=== PATIENT | male | born 1970 | race Two or more races ===

== ENCOUNTER 2018-04-20 10:26 | Inpatient (IN) | payer SELFPAY ==
[~2018-04-20] VITALS: Ht 185.4 cm; Wt 77.1 kg
--- NOTE | 2018-04-20 10:28 | NUR ---
PT BIBA RA [id number] "was found by neighbor sitting in car w/hose connected to exhaust also tried to take isopropryl alcohol yesterday. Hx Depression" PT IS AAOX4, NOT IN RESPIRATORY DISTRESS, V/S STABLE, KEPT RESTED AND COMFORTABLE.
--- NOTE | 2018-04-20 10:28 | NUR ---
SEEN AND EXAMINED BY DR. STERLING.
--- NOTE | 2018-04-20 10:30 | NUR ---
URINE SPECIMEN COLLECTED, LABS DRAWNED AND SENT TO LAB.
--- NOTE | 2018-04-20 10:32 | NUR ---
[employer] AT BEDSIDE.
[2018-04-20 10:43] LABS: APPEARANCE,URINE Clear (CLEAR); BILIRUBIN,URINE MODERATE (NEGATIVE); BLOOD, URINE Negative Ery/uL (NEGATIVE); COLOR,URINE Dark (YELLOW); KETONES,URINE >=160 (NEGATIVE); LEUKOCYTE ESTERASE ,URINE Negative (NEGATIVE); NITRITE, URINE Negative (NEGATIVE); PROTEIN,URINE 30 mg/dl (NEGATIVE); UGLUCOSE Negative (NEGATIVE)
[2018-04-20 10:46] LABS: BASOPHILS # (AUTO) 0.1 /CMM (0.0-0.2); BASOPHILS % (AUTO) 0.6 % (0.0-2.0); EOSINOPHILS % (AUTO) 0.1 % (0.0-6.0); HEMATOCRIT 48 % (39-51); HEMOGLOBIN 16.1 g/dL (13.5-17.5); LYMPHOCYTES % (AUTO) 9.2 % (20.0-44.0); MEAN CORPUSCULAR HGB CONC 34 g/dl (31.0-36.0); MEAN CORPUSCULAR VOLUME 96 fL (80-96); MONOCYTES # (AUTO) 0.6 /CMM (0.1-1.30); MONOCYTES % (AUTO) 5.6 % (2.0-12.0); NEUTROPHILS # (AUTO) 8.8 /CMM (1.8-8.9); NEUTROPHILS % (AUTO) 84.5 % (43.0-81.0); PLATELET COUNT (AUTO) 333 /CMM (150-450); RED BLOOD CELL COUNT(AUTO) 4.97 MIL/uL (4.5-6.0); WHITE BLOOD COUNT (AUTO) 10.5 K/uL (4.3-11.0)
[2018-04-20 10:54] LABS: CARBON DIOXIDE 25 mmol/L (21-32); CHLORIDE 106 mmol/L (98-107); CREATININE 2.3 mg/dL (0.6-1.3); GLUCOSE 120 mg/dL (74-106); POTASSIUM 3.3 mmol/L (3.5-5.1); SODIUM SERUM 145 mmol/L (136-145); UREA NITROGEN, BLOOD 5 mg/dL (7-18)
[2018-04-20 10:58] LABS: BACTERIA,URINE Few /HPF (None Seen); RBC,URINE 0-2 /HPF (0-2); SQUAMOUS EPITHELIAL CELL,UR Rare /HPF (None Seen); WBC,URINE 0-2 /HPF (0-3)
[2018-04-20 11:07] LABS: ACETAMINOPHEN 0 ug/ml (10-30); ALANINE AMINOTRANSFERASE 26 U/L (12-78); ALBUMIN 4.2 g/dL (3.4-5.0); ALCOHOL, BLOOD < 3 mg/dL (0-0); ALKALINE PHOSPHATASE 85 U/L (46-116); ASPARTATE AMINOTRANSFERASE 25 U/L (15-37); BILIRUBIN,DIRECT 0.1 mg/dL (0.0-0.2); BILIRUBIN,TOTAL 0.3 mg/dL (0.2-1.0); SALICYLATE 3.3 mg/dL (2.8-20.0); TOTAL PROTEIN, SERUM 7.6 g/dL (6.4-8.2)
--- NOTE | 2018-04-20 11:30 | NUR ---
MALLIKA AT BEDSIDE FOR EVAL.
--- NOTE | 2018-04-20 13:53 | NUR ---
CALLED [facility]
--- NOTE | 2018-04-20 14:17 | NUR ---
PT IS CLEARED BY MALLIKA DINH FLARE MAN, PT WILL BE ADMITTED MEDICALLY.
[2018-04-20] MEDS ORDERED: IV NS 0.9% 1,000 ML BAG IV ONE (14:30)
[2018-04-20 16:18] LABS: CALCIUM, SERUM 8.4 mg/dL (8.5-10.1); CREATININE 2.2 mg/dL (0.6-1.3)
--- NOTE | 2018-04-20 17:24 | NUR ---
DR. LINDA AT BEDSIDE FOR FOLLOW EVAL.
--- NOTE | 2018-04-20 18:51 | NUR ---
AT BEDSIDE FOR EVAL.
--- NOTE | 2018-04-20 18:56 | NUR ---
Called and left a msg to ALLEGRA Alba/Crisis Team to call us back re: patient.
--- NOTE | 2018-04-20 19:32 | NUR ---
REPORT GIVEN TO EMELI FOR IGOR.
--- NOTE | 2018-04-20 20:28 | NUR ---
GOT BED 320-2
--- NOTE | 2018-04-20 20:39 | NUR ---
CALLING REPORT TO MS NURSE.
--- NOTE | 2018-04-20 20:49 | NUR ---
PT IS GOING TO 310-2. SITTER IS ARRANGED. REPORT GIVEN TO ALLEGRA LACY
[2018-04-20] MEDS ORDERED: IV NS 0.9% 1,000 ML IV PRN (21:02)
[2018-04-20 21:30] VITALS: BP 117/70
[2018-04-20] MEDS ORDERED: HYDROCODONE/APAP 5/325MG 1 EACH TABLET PO PRN (21:30)
[2018-04-20] MEDS ORDERED: ONDANSETRON HCL/PF 4 MG/2 ML VIAL IVP PRN (21:30)
[2018-04-20] MEDS ORDERED: Z GUARD REMEDY 2 OZ OINT TP PRN (21:30)
[2018-04-20] MEDS ORDERED: MAG HYDROX/AL HYDROX/SIMETH 30 ML UDC PO PRN (21:30)
[2018-04-20] MEDS ORDERED: ZOLPIDEM TARTRATE 5 MG TABLET PO PRN (21:30)
[2018-04-20] MEDS ORDERED: ACETAMINOPHEN 325 MG TABLET PO PRN (21:30)
[2018-04-20] MEDS ORDERED: MAGNESIUM HYDROXIDE 30 ML UDC PO PRN (21:30)
--- NOTE | 2018-04-20 21:30 | NUR ---
MS RN NOTE: RECEIVED PATIENT FROM ER, NO ACUTE DISTRESS NOTED. BREATHING EVEN AND UNLABORED, NO SOB NOTED. IV TO LFA IN PLACE. ORIENTED PATIENT TO ROOM AND USE OF CALL LIGHT. BED LOCKED AND IN LOWEST POSITION, CALL LIGHT IN REACH. WILL CONTINUE TO MONITOR.
--- NOTE | 2018-04-21 06:05 | NUR ---
MS RN NOTE: PATIENT RESTING IN BED, NO ACUTE DISTRESS NOTED. BREATHING EVEN AND UNLABORED, NO SOB NOTED. IV TO LFA IN PLACE, INFUSING NS AT 75ML/HR. SITTER AT BEDSIDE. BED LOCKED AND IN LOWEST POSITION, CALL LIGHT IN REACH. WILL ENDORSE TO DAY NURSE TO CONTINUE WITH PLAN OF CARE.
[2018-04-21 06:16] LABS: BASOPHILS # (AUTO) 0.1 /CMM (0.0-0.2); BASOPHILS % (AUTO) 0.8 % (0.0-2.0); EOSINOPHILS % (AUTO) 1.4 % (0.0-6.0); HEMATOCRIT 41 % (39-51); HEMOGLOBIN 13.9 g/dL (13.5-17.5); LYMPHOCYTES # (AUTO) 1.9 /CMM (0.8-4.8); MEAN CORPUSCULAR HGB CONC 34 g/dl (31.0-36.0); MEAN CORPUSCULAR VOLUME 96 fL (80-96); MONOCYTES # (AUTO) 0.5 /CMM (0.1-1.30); MONOCYTES % (AUTO) 6.9 % (2.0-12.0); NEUTROPHILS # (AUTO) 4.9 /CMM (1.8-8.9); NEUTROPHILS % (AUTO) 64.9 % (43.0-81.0); PLATELET COUNT (AUTO) 244 /CMM (150-450); RED BLOOD CELL COUNT(AUTO) 4.27 MIL/uL (4.5-6.0); WHITE BLOOD COUNT (AUTO) 7.5 K/uL (4.3-11.0)
[2018-04-21 06:35] LABS: ALBUMIN 3.1 g/dL (3.4-5.0); BILIRUBIN,TOTAL 0.4 mg/dL (0.2-1.0); CALCIUM, SERUM 8.3 mg/dL (8.5-10.1); CREATININE 1.8 mg/dL (0.6-1.3); PHOSPHORUS 3.6 mg/dL (2.5-4.9); POTASSIUM 3.3 mmol/L (3.5-5.1); TOTAL PROTEIN, SERUM 6.2 g/dL (6.4-8.2)
--- NOTE | 2018-04-21 07:30 | NUR ---
m/s plasma processing centrifuge operator: initial assessment received pt in bed awake, a/ox4; ambulatory. denies si/hi. pt wants to go home today, awaiting for md evaluation, pt verbalized understanding. sitter at bedside. will continue to monitor.
[2018-04-21 08:00] VITALS: BP 113/71
--- NOTE | 2018-04-21 08:20 | NUR ---
m/s histotechnician: md visit seen and examined by dr. sands with new orders. orders acknowledged.
[2018-04-21] MEDS ORDERED: POTASSIUM CHLORIDE 20 MEQ TAB.PRT.SR PO ONE (09:00)
--- NOTE | 2018-04-21 11:15 | NUR ---
m/s research computing specialist: psych eval dr. angulo here and cleared him and prescription for zoloft given for 7 days. educated pt on medication and side effects, pt verbalized understanding. will continue to monitor.
--- NOTE | 2018-04-21 11:25 | NUR ---
m/s hog tender: notes brian (s.w.) at bedside and hand in referrals, pt verbalized understanding. dr. serna notified and made aware that pt is cleared by psychiatrist and will put the order in. pt made aware.
--- NOTE | 2018-04-21 11:30 | NUR ---
m/s signal apprentice: notes order received from dr. serna to discharge pt home with Discharge instructions <Follow up with Psych, Follow up with PCP in 1 week for repeat BUN/Cr. order acknowledged.
--- NOTE | 2018-04-21 11:35 | NUR ---
m/s instructional paraprofessional: notes discharged instructions given to pt and verbalized understanding. h/l removed with tip intact with no bleeding, no redness, and no swelling noted.
--- NOTE | 2018-04-21 11:42 | NUR ---
SW met with pt. to give him referrals to mental health clinics. SW provided active listening and emotional support to the pt. SW encouraged pt. to go to AA and get treatment. The following referrals were given to the pt: Mental health resources to crisis hotline ; Mental health Services Referral Line [facility] [id number], [address] [place] [address] Main Number: [facility]): Contact [facility] [address] [place] [address] HOURS: Sat-Sat 8am--7pm Saturdays 9am--5:30pm Closed on Sundays Clinic stated that walk-ins are welcomed, but they will be a long wait. No appointments. [facility] [place] [address] Operation Hours: SAT - SAT 8:00 a.m. - 5:00 p.m. Walk In Hours: SAT - SAT 8:00 a.m. - 5:00 p.m. Services by Age: Adults and Older Adults Mental Health Services: [facility]) Medication Support Mental Health Services Peer Support NOTE: [facility] 10/09 helpline: No other social service needs are requested at this time. SW is available, if needed.
--- NOTE | 2018-04-21 11:45 | NUR ---
m/s supervisor brine: discharged discharged home via ambulatory in stable condition with all d'c papers.
== END 2018-04-21 12:30 | disposition home or self-care (01) | DRG 683 ==
LOC: ER 10:27 → MED 20:34
PROVIDERS: ADMIT Internal Medicine; ATTEND Internal Medicine
DX: N17.9 Acute kidney failure, unspecified (principal); R45.851 Suicidal ideations; Y90.0 Blood alcohol level of less than 20 mg/100 ml; F17.210 Nicotine dependence, cigarettes, uncomplicated; F32.9 Major depressive disorder, single episode, unspecified; F10.20 Alcohol dependence, uncomplicated; F12.90 Cannabis use, unspecified, uncomplicated
CPT/HCPCS: 36415; 80048-TC; 80053-TC; 80061-TC; 80076-TC; 80305; 81000-TC; 83735-TC; 84100-TC; 85025-TC; 87081-TC; G0378; G0480; J7030